=== PATIENT | female | born 1960 | race Caucasian/White ===

== ENCOUNTER 2017-04-19 17:32 | Inpatient (IN) | payer OTHER ==
[~2017-04-19] VITALS: Ht 167.6 cm; Wt 56.9 kg
--- NOTE | 2017-04-19 17:58 | IP CRISIS DIAG ASSESS PSYCH ---
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 Pt left the house this morning leaving a note for her teenage daughters to call their father (ex-). Ex- contacted the police. Pt was found driving without ID or money. Pt has a hx of depression and was admitted to [facility] in February 2016 for same. Pt reports being depressed, denies SI/HI. Pt reports she hasn't been consistently taking her Wellbutrin and Abilify. Unclear reason why she hasn't been consitent. Since her dischage from [facility], pt has been seeing Dr Ezra Novak every 3 months for medications. 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 Pt reports she is under stress at work but unclear why. Pt denies etoh and substance use. Pt denies SI/HI, AH/VH. Pt presents as alert,cooperative and Ox3. Pt affect is flat with slight smile. Poor insight. Vague and guarded answers. Pt has been transfered from [facility] on a PEC for a direct admission to [facility]. Patient's Address: [address] [place] [address] Other Phone Number: Who Do You Live With? Family (daughters age 16,17) Feel Safe Where You Live? Yes Feel Safe in Your Relationship Yes Marital Status: Do You Have Children? Yes Ages? 20,17 and 16 Primary Language? Croatian Language(s) Spoken At Home: Croatian Family/Informants Interviewed: collateral provided by ex- Joby [phone]. He reports pt has a recent hx of depression and was inpatient last Nov ( 2015) at [facility]. He reports pt had no prior psychiatric hx and he is not aware of pt ever being suicidal or engaging in self-harm. He reports pt is a teacher and generally calm and stable though somewhat withdrawn. Consequences of Psych Med Use: pt not taking her Wellbutrin and Abilify consistently Toxicology Screen Completed? Yes Results: negative Symptoms of Use: no current etoh or substance use Past History Abuse/Trauma History Trauma History/Current Trauma: Denies Legal History Current Legal Status: none Have you ever been arrested? 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 Psychiatric Treatment History Psych Treatment Psychiatric Treatment Yes Inpatient Treatment Yes Outpatient Treatment Yes Location of Treatment [facility] Feb 2016; Dr Ezra Leonardo Malta since Mar 2016 Reason for Treatment depression Dates of Treatment Feb 2016 - current Response to Treatment stable with outpatient tx by Dr Worthy until recently Diagnosis by History: Unspecified depressive d/o Risk Factors: high anxiety/distress, SA/MH hospitalized Substance Use/Abuse History Drug Use/Abuse minimum 12mo Hx Substances Used/Abused No Substance Abuse Treatment Substance Abuse Treatment Past Substance Abuse TX No Inpatient Treatment No Outpatient Treatment No Education History Highest Level of Education: master's degree Preferred Learning Style: visual, auditory, experiential Current Mental Status Mental Status Orientation: Person, Place, Situation Affect: Depressed, Flat Speech: Soft Neuro-vegetative: Anhedonia, Concentration Poor, Energy Decreased Appearance Appearance- Dress/Hygiene: hospital scrubs; flat affect; groomed Behaviors Thought Process: WNL Thought Content: WNL Memory: WNL Insight: Poor SI/HI Risk Assessment - Minimum 6mo History- Past Suicidal Ideation/Attempts No Current Suicidal Ideation/Att No Past Homicidal Ideation/Att: No Current Homicidal Ideation/Attempts No Needs/Init TX Plan/Goals: Psychiatric Evaluation Medication Assessment Individual, Fam and Group Tx Coordinated discharge planning AUDIT-C Questionnaire: AUDIT-C Questionnaire: Response Value ETOH use in the past year Never 0 # drinks typical/day Doesn't Drink 0 6 or > drinks per occasion Never 0 Total 0 DSM5/PS Stressors/Medical Prob Diagnosis' (DSM 5, Stressors, Medical): Unspecified Depression F32.9 mental health work Current GAF: 25 Comments: Pt reports being stressed at work past few weeks but unable to verbalize why. Vague
[2017-04-19 19:39] VITALS: BP 116/58
[2017-04-19] MEDS ORDERED: ABILIFY10 M1 PO (20:29)
[2017-04-19] MEDS ORDERED: WELLBUTRIN SR150 M1 PO (20:30)
[2017-04-20 07:44] VITALS: BP 104/61
--- NOTE | 2017-04-20 09:10 | CPS PROVIDER INIT ASMT PSYCH ---
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 Reviewed: Yes Patient Seen and Examined: Yes Identifying Information: 56-year-old white female brought in by ambulance from [facility]' s emergency department Chief Complaint: According to the evaluation by the media center assistant the patient's chief complaint was "I am under a lot of stress at work." Reaction to Hospitalization: The patient was admitted voluntarily History of Present Illness Onset of Illness: The patient reported that she has had depression for a little over a year but that the worsening has been in the past few weeks it may be that may be related to the of her father the day before 2016 Circumstances Leading to Admission: Increase in depressive symptoms and concern from her ex- about a notes she FOR her 2 daughters. The patient denied that it was a suicide note. I don' t have access to the note at the present time. Problem(s) Justifying Need for Admission: Increase in depression and stress Other HPI: The patient reportedly left a note for care daughter's telling them to call their father (patient's ex-). The patient reportedly was found driving without an ID and without money. The patient has history of depression and was admitted to [facility] in February 2016. The patient denied thoughts of suicide and denied thoughts of violence or homicide. The evaluation indicated that the patient may have been inconsistent with taking her Wellbutrin and Abilify. Both were described by Dr. Ezra Novak Past Psychiatric History Past Diagnosis(es)- if any: Past diagnosis is depressive disorder likely major depressive disorder Past Precipitating Factors- if any: Probably nonadherence to medication or partial adherence to medication - Include inpatient and outpatient treatment Treatment History: The patient was admitted inpatient at [facility] in February 2016 she reported that was her first psychiatric admission. Since her discharge from [facility] she was seeing a psychiatrist in [place] reportedly every 3 months for medication management. History of Suicide Attempts or Gestures The patient denied prior suicide attempts. Substance Abuse History: The patient the patient denied abusing alcohol or substances. Allergies: Coded Allergies: codeine (Intermediate, HIVES 04/19/17) Home Med List: Abilify 10 mg daily Wellbutrin 150 mg daily - Include any medical condition(s) that may - impact the patient's recovery/remission Past Medical History: The patient denied any major medical or physical health issues Past History Medical History Neurological: NONE EENT: NONE Cardiovascular: NONE Respiratory: NONE Gastrointestinal: NONE Hepatic: NONE Renal: NONE Musculoskeletal: NONE Psychiatric: depression Endocrine: NONE Surgical History Surgical History: none Psychiatric Family/Social Hx Family History Psychiatric Illness: The patient reported that her older brother suffers from depression and he is currently well maintained on antidepressants. 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 - #1 Recognizing dangerous situations. - #2 Coping Skills. - #3 Basic information about quitting. Status of Tobacco Cessation Counseling: Not Applicable Cessation Med Status Not Applicable Alcohol Screening - ETOH screen POS if BAL >=80 or Audit-C>= M4/F3 Audit-C Score from Diag Assess: 0 Alcohol Use Screening Results: Neg per Audit C &/or BAL - If ETOH counseling indicated - the following topics are required. - #1 Express concern about the patient's - drinking at unhealthy levels, include informing - of national norms for moderate drinking: - men <= 14 drinks/week, max 4 drinks/occasion - women <= 7 drinks/week, max 3 drinks/occasion - #2 Providing feedback, including linking alcohol to - negative physical effects (liver injury, hypertension) - negative emotional effects (relationship problems and - depression) - negative occupational consequences (reduced work - performance) - #3 Advising the patient to abstain from alcohol or - to drink below national norms for moderate drinking - (as listed above). Status of ETOH Use Counseling: N/A B/C NO ETOH Use Metabolic Screening - Screen if on a Neuroleptic Medication - Metabolic screening should include: - Blood Pressure, BMI, Glucose or Hgb A1c, & a - Lipid profile from within the past 365 days. Metabolic Screening () Not Applicable, patient not on a neuroleptic. OR ([X]) Patient on a neuroleptic(s) . Enter below results for Hemoglobin A1C, and lipid panel if obtained during the last 365 days. BMI: 20.200 Blood Pressure: 104/61 Laboratory Results From [facility] (If applicable): Metabolic profile requested Exam and Plan Mental Status Examination Ambulation Status: Patient was fully multiple and steady on her feet Appearance: Unremarkable Attitude towards examiner: Friendly and cooperative Psychomotor activity: Slightly reduced psychomotor activity Behavior: No abnormalities Quality of speech: Normal speech not pressured , nor slurred Affect: Euthymic Mood: Depressed and anxious Suicidal Ideation: Denied Homicidal Ideation: Denied Hallucinations: Denied Paranoid/Delusional Material: Denied Difficulties with thought organization: No difficulties with thought organization Insight: Seems to have good insight Judgment: Her judgment today seemed intact, prior to admission seemed questionable Orientation: Oriented to time place and person Cognition: Intact cognition Memory Function: No memory deficits Estimate of intellectual functioning: Average Assets/Strengths Patient Identified Assets/Strengths: Intelligence, likable, honest Impression/Plan Impression and Plan: Sabine is a 56-year-old white female who was a direct admission to Inpatient Psychiatry from an [facility]'s emergency department. The patient was brought to the emergency department at [facility] after her ex - contacted 911. The ex- contacted 911 because before she left the house that morning she left a note for her teenage daughters to call their father (patient's ex-). The patient denied that that was a suicide note. The patient has history of depression and 1 prior psychiatric hospitalization at [facility] in February 2016. The patient has no history of suicide attempts. The patient has no history of alcohol or substance use disorder. And the patient has no history of psychosis. - Include all active medical diagnosis that require tx DSM 5 Diagnosis(es): Major depressive disorder recurrent severe no psychotic features - Initial Tx Plan for Active Psych & Medical Conditions Treatment Plan: Inpatient psychiatric care 15 minute checks Continue Abilify 10 mg daily Continue Wellbutrin SR 150 mg daily Nursing staff will provide education and evaluate patient's mental state once a shift. And group therapy Activities therapy Milieu therapy Discharge planning and outreach to family and outside providers by social work. Daily evaluations by psychiatrist - Factors that would help patient function - in a less restrictive setting. Factors: Adherence to medication
--- NOTE | 2017-04-20 10:12 | History & Physical ---
General Information and HPI MD Statement: I have seen and personally examined MIQUEL HOPKINS and documented this H&P. The patient is a 56 year old F who presented with a patient stated chief complaint of "I am under stress at work"]. Source of Information: patient, family, old records Exam Limitations: no limitations History of Present Illness: 56-year-old white female was brought to [facility] for psychiatric evaluation and then sent to [facility] for admission to [facility], apparently patient left the house that morning leaving a note for her teenage daughters to call the father) her ex-). Ex- contacted the police. Patient was found driving without any money or papers. Has history of depression, her last admission was at [facility] in February 2016. Patient reports being depressed denies any suicidal or homicidal ideations and not taking her medication constantly. She states her depression as well as the last few weeks after the of her father in February 2017. Allergies/Medications Allergies: Coded Allergies: codeine (Intermediate, HIVES 04/19/17) Home Med list Aripiprazole (Abilify) 10 MG TABLET 10 MG PO DAILY mental health (Reported) Bupropion HCl (Wellbutrin Sr) 150 MG TABLET.ER 150 MG PO DAILY depression ( Reported) Compliance With Home Meds: POOR Past History Travel History Traveled to [place] past 21 day No Medical History Neurological: NONE EENT: NONE Cardiovascular: NONE Respiratory: NONE Gastrointestinal: NONE Hepatic: NONE Renal: NONE Musculoskeletal: NONE Psychiatric: depression Endocrine: NONE Surgical History Surgical History: none Review of Systems Review of Systems Constitutional: Reports: see HPI. Exam & Diagnostic Data Last 24 Hrs of Vital Signs/I&O Vital Signs Date Time Temp Pulse Resp B/P B/P Pulse O2 O2 Flow FiO2 Mean Ox Delivery Rate 04/20 0644 97.2 98 104/61 04/19 1939 97.5 92 116/58 Intake & Output 04/20 1600 04/20 0800 04/20 0000 Intake Total Output Total Balance Patient 126 lb Weight Physical Exam General Appearance Alert, Oriented X3, Cooperative, No Acute Distress Skin No Rashes, No Breakdown, No Significant Lesion HEENT Atraumatic, PERRLA, EOMI, Mucous Membr. moist/pink Neck Supple, No JVD, No thryomegaly, +2 Carotid Pulse wo Bruit, No LAD Lymphatic Axillary nl, Cervical nl Cardiovascular Regular Rate, No Murmurs Lungs Clear to Auscultation, Normal Air Movement Abdomen Soft, No Tenderness, No Hepatospenomegaly, No Masses Neurological Exam Findings: Normal Gait, Normal Speech, Strength at 5/5 X4 Ext, Normal Tone, Sensation Intact, Cranial Nerves 3-12 NL, Reflexes 2+ Cranial Nerves II through XII: Intact . Extremities No Clubbing, No Cyanosis, No Edema, Normal Pulses, No Tenderness/ Swelling Vascular Normal Pulses, Pulses Symmetrical Last 24 Hrs of Labs/Nathaniel: Laboratory Tests 04/20/17 0620: Sodium Pending, Potassium Pending, Chloride Pending, Carbon Dioxide Pending, Anion Gap Pending, BUN Pending, Creatinine Pending, BUN/Creatinine Ratio Pending , Glucose Pending, Hemoglobin A1c Pending, Calcium Pending, Triglycerides 69, Cholesterol 157, LDL Cholesterol, Calc 80, HDL Cholesterol 64 H, Cholesterol/ HDL Ratio 2, TSH &T3 &Free T4 Intrp 2.170 Diagnostic Data ITS Data Unobtainable at this time Assessment/Plan As Ranked By This Provider Problem List: 1. Depressed Miscellaneous Miscellaneous Documentation Attending Case Discussed With: Son Torres MD Primary Care Physician: Mahesh Calero MD Patient sees these Specialists Psychiatry Level of Patient Care: ESTHER Kirby Consults Needed: Consulting Specialty: Psychiatry Consulting Physician: Samria Torres Reason for Consult: increased depression
[2017-04-20 12:13] VITALS: BP 122/72
[2017-04-20 15:58] VITALS: BP 131/60
--- NOTE | 2017-04-20 16:24 | SOCIAL WORKER SOCIAL HX PSYCH ---
Social History Basic Assessment Insurance Authorization: Insurance #1: Insurance name: LONNIE InVisioneer Phone number: Policy number: [id number] Group number: Authorization number: Curr Source of Income/Entitlements: employment Primary Care Physician: Patient's PCP: Mahesh Calero MD PCP's Primary Language? Belizean Language(s) Spoken At Home: Belizean Living Situation Rents or Owns Home? rents Feel Safe Where You Are Living Yes Feel Safe in Relationships? Yes Allergies - Coded Allergies: codeine (Intermediate, HIVES 04/19/17) Current Medications - Scheduled Medications Aripiprazole (Abilify) 10 MG TABLET 10 MG PO DAILY mental health (Reported) Entered as Reported by Son Torres MD on 04/19/172028 Bupropion HCl (Wellbutrin Sr) 150 MG TABLET.ER 150 MG PO DAILY depression ( Reported) Entered as Reported by Son Torres MD on 04/19/172029 Past History Past Medical History Neurological: NONE EENT: NONE Cardiovascular: NONE Respiratory: NONE Gastrointestinal: NONE Hepatic: NONE Renal: NONE Musculoskeletal: NONE Psychiatric: depression Endocrine: NONE Past Surgical History Surgical History: none /Family History Place/Country of Origin: [place], [place] Childhood Family Constellation: Mother, father and two older brothers Primary Childhood Caretakers: father, mother Family Life During Childhood: "Good" DCF Involvement? No Mother's Age (Current/): 80 Relationship w/Mother: "Good" Father's Age (Current/): 82 Relationship w/Father: "Good" Any Sibling(s)? 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 No History of Blackouts? No [place]/Social/Peer Relations Has friends Meaningful Activities: Crosswords and reading Current Anabaptist Affiliation: Non-caodaism Is Spirituality Important to You? Yes Are There Developmental Issues? No Milestones Achieved: fine motor, gross motor Psychiatric Treatment History Psych Treatment Inpatient Treatment Yes Outpatient Treatment Yes Location of Treatment [facility] Feb 2016; Dr Ezra Garza since Mar 2016 Reason for Treatment depression Dates of Treatment Feb 2016 - current Response to Treatment stable with outpatient tx by Dr Worthy until recently Diagnosis: Unspecified depressive d/o Risk Factors: high anxiety/distress, SA/MH hospitalized Substance Use/Abuse History Drug Use/Abuse Substance Used/Abused No History Symptoms of Use: no current etoh or substance use Substance Abuse Treatment Substance Abuse Treatment Inpatient Treatment No Outpatient Treatment No Sexual History Sexually Active No Education History Highest Level of Education: master's degree Preferred Learning Style: visual, auditory, experiential HX of Learning Difficulties: Auditory Deficit D/O Employment History Employment Employed No. of Jobs in Last 5 Years: 1 Attendance: Normal Performance: Good History Have You Been in The ? No Current Mental Status Mental Status Orientation: Person, Place, Situation Affect: Depressed, Flat Speech: Soft Neuro-vegetative: Anhedonia, Concentration Poor, Energy Decreased Appearance Appearance- Dress/Hygiene: hospital scrubs; flat affect; groomed Behaviors Thought Process: WNL Thought Content: WNL Memory: WNL Insight: Poor SI/HI Risk Assessment Past Suicidal Ideation/Attempts No Current Suicidal Ideation/Att No Past Homicidal Ideation/Att: No Current Homicidal Ideation/Attempts No - Conclusion and Recommendations for treatment - and discharge planning
--- NOTE | 2017-04-20 19:05 | SOCIAL WORKER PROG NOTE PSYCH ---
Social Work Progress Note Progress Note 11:35am This singer songwriter met with patient. She identified her reason for current hospital admission as related to stress regarding work. Patient was unable to identify any specifics regarding work stress. She identified her 16 and 17 year old daughters and a best friend as significant people in her life that she would like to invited for a "family meeting." Patient stated that she came to the hospital following a note that she left for her children simply stating, "call dad." Patient identified deep breathing as a coping skill that she uses. She denied SI/HI/AH/VH. She stated that she would like to return to seeing her psychiatrist as well as finding a therapist. She was reluctant to considering IOP due to the time commitment and her interest in returing to work.
[2017-04-20 20:14] VITALS: BP 122/58
[2017-04-21 07:51] VITALS: BP 103/61
[2017-04-21 12:23] VITALS: BP 103/58
--- NOTE | 2017-04-21 14:43 | CP SOUTH PROGRESS NOTE PSYCH ---
Psych (Inpt) Progress Note Progress Note I had a conversation with Dr. Ezra Novak yesterday. He indicated that the patient has had a florid psychotic signs and symptoms in the past when she has stopped taking her medications. Mental Status Examination The patient was steady on her feet, she was alert oriented to time place and person The patient denied any hallucinations or paranoia. Patient showed normal psychomotor activity there were no abnormal movements. The patient was friendly cooperative and calm. The patient and the patients speech was reduced and a quantity and volume and rate. Patient seemed to be reserved and only spoke to answer questions. The patients responses were short she did not elaborate at length. There were no abnormalities in her behavior noted. The patient acknowledged that her mood is better and she is feeling less depressed and less anxious. She denied feeling hopeless or worthless. She denied wishing or thinking of suicide. She denied having any violent thoughts or thoughts of homicide. She did seem a tiny bit guarded but there was no florid paranoid delusions. It was very difficult to district associate judge her thought process because of the short responses but there was no evidence of incoherence. She wasnt clear as to why she was taking medications only sporadically, she reported that she was only missing about 2 days out of 7 days of the week. She also was not able to articulate what was going on through her mind on the morning that she left the notes to her daughters. It seems that she was confused at the time. Today she did not exhibit any memory deficits although she continues to struggle with attention and concentration. Assessment Seems to have good insight Sabine is a 56-year-old white female who was a direct admission to Inpatient Psychiatry from an [facility]'s emergency department. The patient was brought to the emergency department at [facility] after her ex - contacted 911. The ex- contacted 911 because before she left the house that morning she left a note for her teenage daughters to call their father (patient's ex-). The patient denied that that was a suicide note. The patient has history of depression and 1 prior psychiatric hospitalization at [facility] in February 2016. The patient has no history of suicide attempts. The patient has no history of alcohol or substance use disorder. And the patient has no history of psychosis. 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 And group therapy Activities therapy Milieu therapy Discharge planning and outreach to family and outside providers by social work. Daily evaluations by psychiatrist
[2017-04-21 15:57] VITALS: BP 128/75
--- NOTE | 2017-04-21 17:11 | SOCIAL WORKER PROG NOTE PSYCH ---
Social Work Progress Note Progress Note 10:55am This television writer met with patient. Outpatient treatment was explored and patient stated that she would like to return to work and find outpatient treatment that does not conflict with her work schedule. Upon this television writer's inquiry, the patient stated that she exhausted her FMLA last year and only has five sick days left for this year. She stated that she works from 7:43am-2:30pm daily (Mon-Fri ) in [place]. Patient continues to present as depressed with delayed verbal response. She denied SI/HI/AH/VH. She stated that she took Ativan last night and believes to have had a reaction due to feeling "very dizzy" afterwards. She stated that she informed nursing and would speak wit Dr. Aguilar about this ( Dr. Aguilar was informed). Patient is still agreeable to a family meeting. This television writer spoke with patient's daughter, Chanelle, by phone ([phone]) and scheduled a family meeting for 3:00pm today. Chanelle stated that she would talk to her sisters and the patient's friend, Sharon, regarding who would be able to attend the meeting. 3:15pm Dr. Aguilar and this television writer met with the patient and her daughters (Chanelle and Christine) for a family meeting. Patient's daughters discussed concerns and observations they had about their mother. They stated that she had shown decreased energy, isolation and, at times, not going to work. They stated that she had been tired and sleeping later. They also observed a possible seasonal component to her moods. Patient and her daughters also identified financial concerns as an additional stressor. Dr. Aguilar addressed medication questions and concerns. The daughters reported that the patient had experienced reactions to Lexapro ("terrorized, irrational thoughts and hallucinations"); they struggled to provide specific examples. The patient was observed to have very little reaction to this conversation, and when asked questions, had delayed responses. She was unable to identify clearly if she was censoring her thoughts or if there were other explanations to her delayed responses. Upon Dr. Aguilar leaving the meeting, this television writer discussed outpatient treatment with the patient and her daughters. They were informed that IOP programs would be explored to see about any programs that have later afternoon hours. 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 Patient had signed an [employer] for Sharon earlier today. This television writer joined the patient, Ragini Bruce and the patient's two daughters (Chanelle and Christine) in the kitchen. Patient was agreeable to meeting and discussing treatment. Sharon stated that she had known the patient since they were young and knows the family well. She asked about a potential discharge date and was informed that mid-week next week is being considered, however, nothing has been decided. She was informed that this television writer will explore IOP programs that are later in the day. 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 Patient was agreeable to this. Sharon stated that she would inform the patient and this television writer when she has confirmed how many "sick days" the patient has.
[2017-04-21 19:47] VITALS: BP 108/56
[2017-04-22 07:39] VITALS: BP 135/75
[2017-04-22 11:58] VITALS: BP 132/66
--- NOTE | 2017-04-22 13:32 | CP SOUTH PROGRESS NOTE PSYCH ---
Psych (Inpt) Progress Note Progress Note The treatment team discussed Sabine's treatment and progress. Mental Status Examination Sabine denied feeling dizzy today and was steady on her feet, she was alert oriented to time place and person. She denied hallucinations or paranoia. She showed reduced psychomotor activity, there were no abnormal movements or dystonia. The patient was friendly, cooperative, and calm. The patient speech was with significant delayed responses and reduced and a quantity and volume and rate, her responses were short/did not elaborate much. There were no abnormalities in her behavior She believes her mood is better than when she came in She said she is feeling less depressed and less anxious, denied feeling hopeless or worthless. She denied wishing or thinking of suicide, she denied having any violent thoughts or thoughts of homicide. She did seem a tiny bit guarded but there was no florid paranoid delusions. Less thought blocking/catatonia than yesterday some thought disorder but no incoherence. She was able to smile today, seemed less confused she continues to struggle with attention and concentration. Assessment Seems to have good insight Sabine is a 56-year-old white female who was a direct admission to Inpatient Psychiatry from an [facility]'s emergency department. The patient was brought to the emergency department at [facility] after her ex - contacted 911. The ex- contacted 911 because before she left the house that morning she left a note for her teenage daughters to call their father (patient's ex-). The patient denied that that was a suicide note. The patient has history of depression and 1 prior psychiatric hospitalization at [facility] in February 2016. The patient has no history of suicide attempts. The patient has no history of alcohol or substance use disorder. Diagnosis Updated on 04/22/2016: Major depressive disorder recurrent severe WITH psychotic features Treatment Plan: Resume Ativan but only 1 mg at bedtime for catatonia (Ativan was stopped in error yesterday instead of being reduced to 1 mg because of complaints of being unsteady on her feet when we gave full 2 mg the night before that) Continue inpatient psychiatric care. Continue 15 minute checks Continue Abilify 10 mg daily Continue Wellbutrin-SR 150 mg daily Continue Nursing assessments and patient education and evaluate patient's mental state once a shift. Continue group therapy Continue Milieu therapy Continue discharge planning and outreach to family and outside providers by social work. Continue Daily evaluations by psychiatrist
--- NOTE | 2017-04-22 13:35 | SOCIAL WORKER PROG NOTE PSYCH ---
See Addendum Social Work Progress Note Progress Note 10:10am This writer technical publications met with patient. She reported some improved mood, however, continues to present as depressed with slowed verbal response. There were a few instances in which her response appeared to be slightly less slowed. Patient reflected on the family meeting and discussed her reaction, specifically stating that she realizes that she needs to be more involved with her family at home. She maintains concerns about her work and being able to return, however, willing to attend an IOP if it does not conflict with her work schedule. This writer technical publications left clinical requesting continued inpatient authorization for [facility] at [phone], ext. [phone]. A call back number was provided.
[2017-04-22 16:06] VITALS: BP 135/69
[2017-04-22 19:51] VITALS: BP 137/69
[2017-04-23 07:40] VITALS: BP 146/77
--- NOTE | 2017-04-23 10:53 | CP SOUTH PROGRESS NOTE PSYCH ---
Psych (Inpt) Progress Note Progress Note The multidisciplinary treatment team discussed Sabine's treatment and progress. Nursing and Group Therapists, and Social Work reported some improvement in patients affect and sociability Mental Status Examination Sabine showed more facial expressions and smiled a couple times. She denied feeling dizzy this morning and she was steady on her feet. Sabine was alert and oriented to time, place and person. She did report feeling better and is depressed. She denied feeling hopeless about her life, denied feeling that her life is worthless, and she denied thoughts of suicide. The patient denied having violent thoughts or thoughts of homicide. She denied hallucinations. She denied feeling paranoid. She did seem somewhat guarded but I did not observe any delusions. She continues to have reduced psychomotor activity. However, there were no abnormal movements noted dystonia not Parkinsonian tremor and no akathisia. Sabine was friendly and cooperative and calm. Continues to have delayed responses but the delivery seems to be a tiny bit less than yesterday. Speech was reduced in quantity, volume, and rate. There were no bizarre abnormal behaviors on the unit. She seems to have some difficulties with attention and concentration. There was no evidence of gross impairment in short-term memory. Less thought blocking/catatonia Assessment Sabine is a 56-year-old white female who was a direct admission to Inpatient Psychiatry from [facility]'s emergency department. The patient was brought to the [facility] ED after her ex- contacted 911 because before she left the house that morning and left a note for her teenage daughters to call their father (patient's ex-). The patient denied that that was a suicide note (daughters confirmed that). The patient has history of depression and 1 prior psychiatric hospitalization at [facility] in February 2016. The patient has no history of suicide attempts. The patient has no history of alcohol or substance use disorder. Diagnosis Updated on 04/22/2016: Major depressive disorder recurrent severe WITH psychotic features Treatment Plan: Same treatment, more time Continue Ativan 1 mg at bedtime for catatonia Continue inpatient psychiatric care. Continue 15 minute checks Continue Abilify 10 mg daily Continue Wellbutrin-SR 150 mg daily Continue nursing assessments /patient education and evaluate patient's mental state once a shift. Continue Group therapy Continue Milieu therapy Continue Discharge planning and outreach to family and outside providers by social work. Continue Daily evaluations by a psychiatrist
[2017-04-23 12:31] VITALS: BP 140/69
[2017-04-23 15:48] VITALS: BP 151/71
--- NOTE | 2017-04-23 18:48 | SOCIAL WORKER PROG NOTE PSYCH ---
Social Work Progress Note Progress Note 5:12pm This policy writer sales met with patient. She described her mood as "good" and feels "more alert." She was informed that the [facility] does not provide afternoon/evening appointments. This policy writer sales and patient identified other possible options ( [facility]) who will be contact.
[2017-04-23 19:43] VITALS: BP 149/81
--- NOTE | 2017-04-24 08:52 | CP SOUTH PROGRESS NOTE PSYCH ---
Psych (Inpt) Progress Note Progress Note Include the following elements, when applicable: Involvement in the active treatment of the patient with behavioral observations of the patient and the patient's response to the treatment. Review of the ongoing treatment process in the context of the treatment plan. Indication of how multi-disciplinary staff members are carrying out the treatment plan. Plans for future interventions and recommendations for revision of the treatment plan. Liaison with other physicians/providers. Progress Note: Pt notes that she feels that she is improving overall. Feels that depression is slightly better. Denies SI or HI. Sleeping OK with ativan. Discussed the risks of long-term BDZ use with pt. Denies AVHs. Current Medications Sig/Anca Start time Last Medication Dose Route Stop Time Status Admin Acetaminophen 650 MG Q6P PRN 04/19 2030 AC PO Al Hydroxide/Mg 30 ML Q4-6 PRN PRN 04/19 2030 AC Hydroxide PO Aripiprazole 10 MG DAILY 04/20 1000 AC 04/23 PO 0803 Bupropion HCl 150 MG DAILY 04/20 1000 AC 04/23 PO 0803 Lorazepam 0.75 MG AT BEDTIME 04/24 2200 UNVr PO Lorazepam 1 MG AT BEDTIME 04/22 2200 DC 04/23 PO 2134 Lorazepam 1 MG Q6P PRN 04/20 1400 AC PO Magnesium Hydroxide 30 ML AT BEDTIME PRN 04/19 2030 AC PO Trazodone HCl 50 MG AT BEDTIME NEED.. 04/24 0900 UNVr PO Vital Signs Date Time Temp Pulse Resp B/P B/P Pulse O2 O2 Flow FiO2 Mean Ox Delivery Rate 04/23 1942 98.3 116 149/81 04/23 1548 104 151/71 04/23 1231 92 140/69 MSE General appearance: good hygiene and grooming; Attitude: cooperative; Eye contact: appropriate; Movement: no psychomotor agitation or slowing; Speech: nl fluency, nl rate/rhythm, nl volume, nl prosody; Mood: "improving" Affect: sad, flat, appropriate, constricted, non-labile, congruent; Thought process: linear and goal-directed; Thought content: denied SI or HI, no paranoid ideation; Perception: denied hallucinations- auditory, visual, does not appear to be responding to internal stimuli; I/J: limited A/P: Pt with MDD with marked decrease in function prior to hospitalization now improved. -Decreased ativan 1mg to 0.75mg at bedtime - Added trazodone 50mg at bedtime PRN -Encourage integration into the milieu
[2017-04-24 12:29] VITALS: BP 111/72
[2017-04-24 12:30] VITALS: BP 132/85
[2017-04-24 16:04] VITALS: BP 130/70
[2017-04-24 20:27] VITALS: BP 119/63
[2017-04-25 07:47] VITALS: BP 125/74
[2017-04-25 12:18] VITALS: BP 148/80
--- NOTE | 2017-04-25 13:14 | CP SOUTH PROGRESS NOTE PSYCH ---
Psych (Inpt) Progress Note Progress Note Include the following elements, when applicable: Involvement in the active treatment of the patient with behavioral observations of the patient and the patient's response to the treatment. Review of the ongoing treatment process in the context of the treatment plan. Indication of how multi-disciplinary staff members are carrying out the treatment plan. Plans for future interventions and recommendations for revision of the treatment plan. Liaison with other physicians/providers. Progress Note: Pt notes that keeps feeling btter. Took lower dose of BDZ w/o difficult. NOtes no change. Visited by her daughter and her friend. Feels they are supportive or her. Wants to do IOP after discharge for increased support. Denied SI or HI. Current Medications Sig/Anca Start time Last Medication Dose Route Stop Time Status Admin Acetaminophen 650 MG Q6P PRN 04/19 2030 AC PO Al Hydroxide/Mg 30 ML Q4-6 PRN PRN 04/19 2030 AC Hydroxide PO Aripiprazole 10 MG DAILY 04/20 1000 AC 04/25 PO 0804 Bupropion HCl 150 MG DAILY 04/20 1000 AC 04/25 PO 0804 Lorazepam 0.75 MG AT BEDTIME 04/24 2200 AC PO Lorazepam 1 MG Q6P PRN 04/20 1400 AC PO Magnesium Hydroxide 30 ML AT BEDTIME PRN 04/19 2030 AC PO Trazodone HCl 50 MG AT BEDTIME NEED.. 04/24 0900 AC PO Vital Signs Date Time Temp Pulse Resp B/P B/P Pulse O2 O2 Flow FiO2 Mean Ox Delivery Rate 04/25 1218 93 148/80 04/25 0747 97.1 97 125/74 04/24 2026 98.0 91 119/63 04/24 1604 104 130/70 MSE General appearance: good hygiene and grooming; Attitude: cooperative; Eye contact: appropriate; Movement: no psychomotor agitation or slowing; Speech: nl fluency, nl rate/rhythm, nl volume, nl prosody; Mood: "better" Affect: sad, flat, appropriate, constricted, non-labile, congruent; Thought process: linear and goal-directed; Thought content: denied SI or HI, no paranoid ideation; Perception: denied hallucinations- auditory, visual, does not appear to be responding to internal stimuli; I/J: limited A/P: Pt with MDD with marked decrease in function prior to hospitalization now improved. - Pt tolerated decreased in ativan wo difficulty -Encourage integration into the milieu
[2017-04-25 16:10] VITALS: BP 136/74
[2017-04-25 19:59] VITALS: BP 146/71
[2017-04-26 07:49] VITALS: BP 130/63
--- NOTE | 2017-04-26 08:39 | CP SOUTH PROGRESS NOTE PSYCH ---
Psych (Inpt) Progress Note Progress Note I reviewed the notes of Dr. Emmanuelle Riggs MD (covering psychiatrist for the weekend) for Wed and Wednesday (Apr.24 and 2017). In its morning meeting, the multidisciplinary treatment team discussed Sabine's treatment and progress. Nursing, Group Therapists, and Social Work reported slow but consistent improvement in patients affect and sociability Mental Status Examination Sabine showed slightly improved affect with more facial expressions and ability to smile on occasion. Sabine showed steady gait and denied feeling dizzy. She was alert and fully oriented. She reported that she's been feeling less depressed, and denied feeling hopeless or that her life is worthless. sabine denied wishing and denied thoughts of suicide. She denied having violent thoughts or thoughts of homicide. She denied hallucinations, and denied feeling paranoid. She is less I did not observe any delusions. She continues to have reduced psychomotor activity. Sabine was friendly, cooperative and calm. Delayed in responses seemed shorted. There were no bizarre abnormal behaviors on the unit. She has some difficulties with attention and concentration, no evidence of gross impairment in short-term memory. Less thought blocking/catatonia. There were no abnormal movements noted dystonia not Parkinsonian tremor and no akathisia. Assessment Sabine is a 56-year-old White female who was admitted to [facility] from [facility]'s emergency department. She was brought to the [facility] 's ED after her ex- contacted 911 because she left a note for her teenage daughters to call their father (patient's ex-). Sabine denied that it was a suicide note (daughters confirmed that). The patient has history of depression and 1 prior psychiatric hospitalization at [facility] in February 2016. She has no history of suicide attempts, and no history of alcohol or substance use disorder. Diagnosis (last updated on 04/22/2017): Major depressive disorder, recurrent, severe WITH psychotic features Treatment Plan: Continue same treatment Continue Ativan 0.75 mg at bedtime for catatonia Continue inpatient psychiatric care. Continue 15 minute checks Continue Abilify 10 mg daily Continue Wellbutrin-SR 150 mg daily Continue nursing care: assessments every shift, education and evaluate patient's mental state. Continue Group therapy Continue Milieu therapy Social Work will continue Discharge planning, outreach to family and outside providers by social work. Psychiatrist to continue daily evaluations
[2017-04-26 12:16] VITALS: BP 127/65
--- NOTE | 2017-04-26 15:09 | CP SOUTH PROGRESS NOTE PSYCH ---
See Addendum Psych (Inpt) Progress Note Progress Note I reviewed the notes of Dr. Emmanuelle Riggs MD (covering psychiatrist for the weekend) for Wed and Wednesday (Apr.24 and 2017). The patient's treatment and progress in the past 24 hours were discussed and the treatment team meeting this morning (nursing staff, social work, group therapists, and activity therapist were all present. I met with patients conservator (his mother) with Lo Rojas LCSW I met with the patient in the presence of med studentSonny Mental Status The patient is angry and stormed out of the office shouting obscene language after about 7 minutes continues to be thought disordered and going off on tangents and sometimes incoherent statements. He is paranoid and focused on discharge. continues to be irritable and hostile. not confused today. He denies having any visual tactile olfactory or ausio hallucinations. He denied suicidal ideation and homicidal ideation and insists that he is ready for discharge. He denied feeling paranoid but appears to be paranoid and is disordered thoughts less delusional material , thought disorder /still difficult to make sense of what he is trying to say. He has poor insight and poor judgment. He has significant difficulty with attention concentration. It's not clear whether he has memory impairment or not. It's not clear whether the patient has brain injury he was completely against Depo medication Assessment: The patient is a 32-year-old single white male with history of schizophrenia was admitted after heavy drinking and disorganized state. His current his sister called 911 because she was concerned about his safety. The first 2 days the patient was mumbling and disorganized. The patient has shown improvement since admission but remains somewhat disorganized and irritable and belligerent and fond of using profanities Treatment plan update: Continue inpatient psychiatric care Continue 15 minute checks Continue Seroquel to 50 mg BID Continue Zyprexa Zydis 10 mg at bedtime Continue daily evaluations by a psychiatrist Continue nursing assessment is a shift Continue Group activity and milieu therapy Social Work to continue discharge planning Probable cause hearing
[2017-04-26 15:56] VITALS: BP 126/74
--- NOTE | 2017-04-26 16:51 | SOCIAL WORKER PROG NOTE PSYCH ---
Social Work Progress Note Progress Note 10:31am This headline writer responded to a voicemail left by Ragini Talamantes regarding a letter for work. This headline writer spoke with Ragini Talamantes by phone ([phone]), who agreed to obtain the phone number as well as who the letter needs to be written to. She stated that she will call this headline writer once the information is available. 12:55pm This headline writer met with patient. She was informed that this headline writer had been unable to locate an IOP that she could attend without conflicting with her work schedule. Patient shared that she has noticed improvement with symptoms and is feeling more alert and socializing more on the unit. She stated that if an IOP could not be identified, she would be interested in returning to Dr. Novak ( psychiatrist) and finding an individual therapist. She would also be willing to attend an outpatient group. Patient denied SI/HI/AH/VH. She appears to have less of a delay in her verbal responses during this meeting. This headline writer spoke with Hattie from [facility] ([phone], ext. [phone]) providing clinical for a concurrent review. Next review is due on 04/27/17. Hattie provided the following clinics in interest of IOP: [facility], [place], [facility], [place], [facility], [facility].
--- NOTE | 2017-04-26 16:51 | SOCIAL WORKER PROG NOTE PSYCH ---
Social Work Progress Note Progress Note [facility], [facility], [facility], [facility]
[2017-04-26 19:42] VITALS: BP 117/60
[2017-04-27 07:38] VITALS: BP 123/67
--- NOTE | 2017-04-27 08:26 | CP SOUTH PROGRESS NOTE PSYCH ---
Psych (Inpt) Progress Note Progress Note I will be attending the multidisciplinary treatment team meeting at 9:15 to discuss Sabine's treatment and progress. The multidisciplinary treatment team will include Nursing staff, Group Therapists, and Social Work staff. Mental Status Examination Sabine showed improved affect with more facial expressions and ability to smile. She reported feeling better/less depressed. She showed steady gait. She was alert and oriented to time, place, and person. She reported that she has been thinking quicker, denied feeling hopeless or worthless, and denied wishing and denied thoughts of suicide. No violent thoughts or thoughts of homicide. She denied hallucinations, and denied feeling paranoid. I did not observe any delusions. slight improvement in psychomotor activity. Sabine remains friendly, cooperative and calm, quicker responses, no bizarre behaviors on the unit, some difficulties with attention and concentration, no evidence of gross impairment in short-term memory. Sabine showed less thought blocking/less catatonia. There were no abnormal movements, no dystonia, no Parkinsonian tremor and no akathisia. Assessment Sabine is a 56-year-old White female who was admitted to CPS from [facility]'s emergency department where she was brought by ambulance after her ex- contacted 911 because she left a note for her teenage daughters to call their father (patient's ex-). Sabine denied that it was a suicide note (daughters confirmed that). Sabine has history of depression with psychotic features and 1 prior psychiatric hospitalization at [facility] in February 2016. She has no history of suicide attempts, and no history of alcohol or substance use disorder. Diagnosis (last updated on 04/27/2017): Major depressive disorder, recurrent, severe WITH psychotic features (rule out Bipolar I, MRE depressed, severe with catatonia and psychotic features ) Treatment Plan: Possible Discharge Today Continue Ativan 0.75 mg at bedtime for catatonia Continue inpatient psychiatric care. Continue 15 minute checks Continue Abilify 10 mg daily Continue Wellbutrin-SR 150 mg daily Continue nursing care: assessments every shift, education and evaluate patient's mental state. Continue Group therapy Continue Milieu therapy Social Work will continue discharge planning, outreach to family and outside providers Psychiatrist to continue daily evaluations
[2017-04-27] MEDS ORDERED: ATIVAN0.5 M1 PO ×2 (08:27→08:35)
[2017-04-27 12:16] VITALS: BP 137/64
--- NOTE | 2017-04-27 14:25 | DISCHARGE SUMMARY REPORT-PSYCH ---
Visit Information Visit Dates/Diagnosis' Admission Date: 04/19/17 Discharge Date: 04/27/17 Reason for Admission: A 56-year-old white female who was brought in to Inpatient Psychiatry from [facility]'s emergency department by ambulance. The patient was taking too much and too [facility]'s emergency after her ex- called 911. The patient reportedly left a note for her 2 teenage daughters to call their father in (patient's ex-) Psy Discharge Primary Diag: Mood Disorder Hospital Course Significant Lab Findings: The patient had the elevated elevated sodium and to the [facility] emergency department as "it was thoughts primarily due to dehydration the patient was hydrated and the repeat blood work was normal except for a minor elevation in the sodium at 148 mmol per liter Course Complications: The patient did not have any complications while she was on the inpatient psychiatric unit Consultations: The patient had an admission history and physical examination At the patient was seen by Dr. Marcos on 04/20/2017. There was no significant medical problems Allergies: Coded Allergies: codeine (Intermediate, HIVES 04/19/17) Hospital Course/TX Response: The patient was a direct admission from [facility]'s ED, on the early evening hours of 04/19/2017 I saw the patient on April 20. My impression was the patient was suffering from major depressive disorder severe with some psychotic features and I discussed the treatment options with her and the plan was to resume the same medications that were prescribed by her outpatient psychiatrist. She was supposed to be on Abilify 10 mg daily and Wellbutrin XL 150 mg daily the patient however has been inconsistent with taking these medications. The patient was kept on these 2 medications until the time of her discharge on 04/27/2017. During her stay she was also noted to be catatonic during a family meeting with her 2 daughters. Ativan was added to her treatment The dose of Ativan was reduced because the patient had some extra sedation and also the Ativan affected her gait at daily dose of 2 mg total so the dose was gradually protected down at the time of her discharge it was recommended that she leaves with half a milligram twice daily for the catatonia. The patient showed slow but consistent improvement in her mood day after day as well as an improvement in her thought processes and also less thought blocking and less catatonia. Sabine's mental status at the time of her discharge indicated the following: Sabine showed improved affect with improved facial expressions and ability to smile. She reported feeling better and feeling less depressed. Her gait was steady was steady. She was alert and oriented to time place and person. She reported that she has been thinking "car and in fact her responses where in fact quicker than in the previous days. Tesha denied feelings of hopelessness or worthlessness. She denied wishing or thinking of suicide. The she did not have any violent thoughts or thoughts of homicide throughout her admission. She denied hallucinations and denied feeling paranoid. I did not observe any delusions in my interviews with the patient. She has shown improvement in her psychomotor activity. She was always a friendly cooperative and calm during interviews. There was no bizarre bizarre behaviors on the unit. She did show some difficulties with attention and concentration. There was no impairment in her short-term memory. And at the day of her discharge she was showing much less thought blocking and much less catatonia. There were no abnormal movements , no dystonia, no Parkinsonian tremors, and no akathisia. Assessment: 56-year-old white female who was admitted to Inpatient Psychiatry from [facility]'s emergency department after her ex- called 911. The ex - called 911 because she left a note to her teenage daughters to call their father in (the patient's ex-). She indicated that it was not a suicide note and in fact the daughters confirm that there was nothing mentioned about suicide it was a very short note stating that the daughters should call their father. The patient did in fact have a previous admission in February 2016 at [facility]. But she has no history of suicide attempts in the past and no history of alcohol or substance use disorder. Discharge diagnosis major depressive disorder, 3 current, severe with psychotic features Rule out bipolar 1 most recent episode depressed severe with catatonia and psychotic features. Discharge medications: Please see below Discharge disposition: The plan was to discharge patient back home and to continue her psychiatric treatment with Dr. Ezra Novak MD and an individual therpaist Discharge HBIPS - Tobacco Use Treatment Offered Post DC Medications Offered: Not Applicable Post DC Tobacco Treatment Plan: Not Applicable - EtOH/Drug Use D/O Treatment Offered Post DC Medications Offered: NA-No EtOH/Drug Use D/O Post DC EtOH/SubAbuse TX Plan: NA-No EtOH/Drug Use D/O Metabolic Screening - Screen if on a Neuroleptic Medication - Metabolic screening should include: - Blood Pressure, BMI, Glucose or Hgb A1c, & a - Lipid profile from within the past 365 days. Metabolic Screening () Not Applicable, patient not on a neuroleptic. OR ([X]) Patient on a neuroleptic(s) . Enter below results for Hemoglobin A1C, and lipid panel if obtained during the last 365 days. Patient had blood work outside [facility] in the past 365 days The blood work from [facility] did not include Lipid Profile The metabolic monitoring for Abilify will have to be done as outpatient BMI: 20.200 Blood Pressure: 137/64 Laboratory Results From [facility] E[facility] (If applicable): N/A Discharge Instructions General Discharge Information Multiple Neuroleptics: (X) Not Applicable OR Document below three failed attempts at monotherapy, or a plan to taper to monotherapy, or augmentation of Clozapine. () Discharge Diet Regular Discharge Activity Normal DC Disposition: Home, Prescriptions Continue taking these medications: Aripiprazole (Abilify) 10 MG TABLET 10 Milligram ORAL DAILY Bupropion HCl (Wellbutrin Sr) 150 MG TABLET.ER 150 Milligram ORAL DAILY Start taking the following new medications: Lorazepam (Ativan) 0.5 MG TABLET 0.5 Milligram ORAL TWICE DAILY Qty = 30 No Refills Copies To: Scarlet LOCKE,Ezra
[2017-04-27 15:51] VITALS: BP 151/78
--- NOTE | 2017-04-27 18:12 | SOCIAL WORKER PROG NOTE PSYCH ---
Social Work Progress Note Progress Note 10:25am This abstract writer met with patient. She described her mood as "good" and denied SI/HI /AH/VH. Patient was more engaged in the discussion and response was not as slow as in previous discussions. Patient stated that she is looking forward to returning home and discussed possible discharge plans. Patient identified a safety plan in which she would "call my friends" and specifically identified Ragini Talamantes. Additionally, she was informed that she would be provided with crisis and warm line numbers upon discharge, which she stated that she was agreeable to using. Patient is only interested in programs/appointments that are as of 3pm or later due to her work schedule. The following programs were contacted requesting information on their services as well as the referral process: - [facility], - a was left with call back number for this abstract writer - [facility], - this abstract writer spoke with Jordy who stated that their IOP meets from 2-5pm and that they offer primarily group therapy; patient was not interested due to the time conflict with work - [facility] - per patient, the commute is too far - [facility], - left at 9:04am - [facility] - received call from Alysia who stated that they do not have a IOP in the afternoon/evenings - [facility] - [facility] returned the call at 4:26pm who stated that they currently have a waiting list; patient only needs to call to schedule an appointment if interested. They offer individual and group therapy - [facility], - left with call back number Patient also stated that she would like to return to her psychiatrist, Dr. Novak, for medication management. Upon return call from [facility], and due to being unable to identify an IOP that the patient could attend, an appointment was scheduled with Kayleen Roper for 04/28/17 at 4:30pm. Dr. Novak also returned this abstract writer's call and an appointment with him has been scheduled for 04/29/17, , at 6:15pm. Dr. Novak was informed of the discharge plans. He requested that the discharge documents are mailed to him as his fax machine is not working. Patient did not identify any concerns about discharge and accepted the individual therapy and medication management appointment. 5:45pm Patient's friend, Ragini Talamantes, arrived to [facility] with the patient's [id number] to provide transportation home from the hospital. Patient gave verbal permission for her [id number] to be part of this conversation. Discharge appointments and safety plan were reviewed. All were in agreement with the discharge plan and denied having any concerns. Faxed Referral(s) Referred To: [facility] Transition of Care Documents sent: Health Summary Faxed to: [facility] Fax #: [phone] Faxed by: Nasrin Rojas LCSW Date faxed: 04/27/17 Time Faxed: [phone]
--- NOTE | 2017-04-28 18:12 | SOCIAL WORKER PROG NOTE PSYCH ---
Social Work Progress Note Progress Note This engineering writer left discharge clinical for Miley ([phone], ext. [phone]).
== END 2017-04-27 17:27 | DRG 885 ==
LOC: CP SOUTH 18:25 → ENRESERV 18:30 → CP SOUTH 04-20 11:38
PROVIDERS: Psychiatry & Neurology Psychiatry
DX: F39 Unspecified mood [affective] disorder (principal)
CPT/HCPCS: 36415; J0401; J3490